=== PATIENT | male | born 1940 | race Caucasian/White ===

== ENCOUNTER 2017-05-29 08:11 | Inpatient (IN) | payer OTHER, MEDICARE ==
[~2017-05-29] VITALS: Ht 172.7 cm; Wt 88.5 kg
[~2017-05-29 08:11] MED LIST: ACTOS15 MG PO; AMARYL2 MG PO; AMLODIPINE BESY10 MG PO; ASPERDRINK81 MG PO; ATENOLOL50 MG PO; BUPROBAN150 MG PO; CALCITRIOL0.5 MCG PO; CARVEDILOL12.5 MG PO; COLACE100 MG PO; CRESTOR10 MG PO; Flomax PO; HYDRALAZINE HCL10 MG PO; Halfprin PO; KEFLEX500 MG PO; LASIX20 MG PO; LISINOPRIL10 MG PO; LOTREL PO; Tenormin PO; Tylenol Regular Stre PO; VITAMIN D31000 UNIT PO; WELLBUTRIN SR150 MG PO; WYGESIC,DARV1 TABLET PO; ZETIA10 MG PO; Zocor PO
[2017-05-29 09:24] LABS: BASOPHIL (%) 0.1 % (0-1); EOSINOPHIL (%) 0.1 % (0-5); HEMATOCRIT 41.5 % (38.0-50.0); HEMOGLOBIN 13.5 G/DL (12.5-16.6); IMMATURE GRANULOCYTE (%) 0.3 % (0.0-0.7); LYMPHOCYTE (%) 12.3 % (15-42); LYMPHOCYTE COUNT 1.2 K/uL (1.0-2.8); MCH 30.5 PG (29.0-34.0); MCHC 32.5 G/DL (30.0-36.0); MCV 93.7 FL (86-99); MONOCYTE (%) 10.6 % (3-12); NEUTROPHIL (%) 76.6 % (45-76); NEUTROPHIL COUNT 7.4 K/uL (1.8-6.4); PLATELET COUNT 281 K/uL (156-360); RBC DIS.WIDTH-CV 12.9 % (11.8-14.6); RBC DIS.WIDTH-SD 44.8 % (39-53); RED BLOOD COUNT 4.43 M/uL (4.00-5.50); WHITE BLOOD COUNT 9.6 K/uL (4.1-10.2)
[2017-05-29 09:32] LABS: ALBUMIN 3.7 g/dL (3.2-4.8); CHLORIDE 100 mEq/L (99-109); POTASSIUM 4.4 mEq/L (3.7-5.4); SODIUM 143 mEq/L (136-147)
[2017-05-29 09:34] LABS: GLUCOSE 127 mg/dL (70-99); TOTAL PROTEIN 7.8 g/dL (6.4-8.3)
[2017-05-29 09:36] LABS: TOTAL BILIRUBIN 0.6 mg/dL (0.0-1.0)
[2017-05-29 09:38] LABS: ALKALINE PHOSPHATASE 110 IU/L (3-129); CREATININE 2.8 mg/dL (0.6-1.3); GFR ESTIMATE (CALCULATED) 23 mL/min/ (58.99-99999)
[2017-05-29 09:39] LABS: UREA NITROGEN (BUN) 51 mg/dL (9-23)
[2017-05-29 09:40] LABS: AST (GOT) 66 IU/L (2-34)
[2017-05-29 09:41] LABS: ALT (GPT) 49 IU/L (3-49)
[2017-05-29 09:49] LABS: TROP-I INTERPRETATION NEGATIVE; TROPONIN-I 0.02 ng/mL (0.0-0.30)
[2017-05-29 10:17] LABS: APPEARANCE CLEAR ((CLEAR)); BILIRUBIN NEGATIVE; BLOOD SMALL; COLOR YELLOW ((YELLOW)); GLUCOSE (STRIP) NEGATIVE; KETONES 5; LEUKOCYTES NEGATIVE; NITRITE NEGATIVE; PROTEIN (STRIP) 100; SPECIFIC GRAVITY 1.017 (1.000-1.030); UROBILINOGEN 0.2 MG/DL (0.2-1.0)
[2017-05-29 10:37] LABS: BACTERIA NONE SEEN /HPF; EPITHELIAL CELLS RARE /HPF; HYALINE CASTS 0-5 /LPF; MUCUS TRACE /LPF; RED BLOOD CELLS 0-5 /HPF (0-5); UCUL ADDED? NO; WHITE BLOOD CELLS 0-5 /HPF (0-5)
[2017-05-29 14:56] VITALS: BP 166/76
[2017-05-29 20:33] VITALS: BP 166/81
[2017-05-29 23:45] VITALS: BP 173/74
[2017-05-30 07:03] LABS: BASOPHIL (%) 0.3 % (0-1); EOSINOPHIL (%) 0.4 % (0-5); HEMATOCRIT 40.9 % (38.0-50.0); IMMATURE GRANULOCYTE (%) 0.3 % (0.0-0.7); LYMPHOCYTE (%) 18.2 % (15-42); LYMPHOCYTE COUNT 1.4 K/uL (1.0-2.8); MCHC 31.8 G/DL (30.0-36.0); MCV 94.2 FL (86-99); MONOCYTE (%) 12.4 % (3-12); NEUTROPHIL (%) 68.4 % (45-76); NEUTROPHIL COUNT 5.4 K/uL (1.8-6.4); PLATELET COUNT 309 K/uL (156-360); RBC DIS.WIDTH-CV 13.1 % (11.8-14.6); RBC DIS.WIDTH-SD 45.1 % (39-53); RED BLOOD COUNT 4.34 M/uL (4.00-5.50); WHITE BLOOD COUNT 7.9 K/uL (4.1-10.2)
[2017-05-30 07:25] LABS: CHLORIDE 100 MEQ/L (99-109); GFR ESTIMATE (CALCULATED) 29 mL/min/ (58.99-99999); GLUCOSE 133 mg/dL (70-99); POTASSIUM 4.1 MEQ/L (3.7-5.4); SODIUM 143 MEQ/L (136-147); UREA NITROGEN (BUN) 41 mg/dL (9-23)
[2017-05-30 07:47] LABS: CREATININE 2.3 MG/DL (0.6-1.3)
[2017-05-30 08:39] VITALS: BP 183/88
[2017-05-30 16:04] VITALS: BP 189/88
[2017-05-30 20:15] VITALS: BP 187/97
[2017-05-31 00:14] VITALS: BP 183/83
[2017-05-31 01:25] VITALS: BP 180/84
[2017-05-31 03:42] VITALS: BP 174/89
[2017-05-31 07:35] LABS: HEMOGLOBIN 12.6 G/DL (12.5-16.6); MCH 29.5 PG (29.0-34.0); MCHC 31.5 G/DL (30.0-36.0); MCV 93.7 FL (86-99); PLATELET COUNT 323 K/uL (156-360); RBC DIS.WIDTH-CV 13.2 % (11.8-14.6); RBC DIS.WIDTH-SD 45.1 % (39-53); RED BLOOD COUNT 4.27 M/uL (4.00-5.50); WHITE BLOOD COUNT 10.6 K/uL (4.1-10.2)
[2017-05-31 08:00] LABS: CHLORIDE 99 MEQ/L (99-109); CREATININE 1.9 MG/DL (0.6-1.3); GFR ESTIMATE (CALCULATED) 37 mL/min/ (58.99-99999); GLUCOSE 121 mg/dL (70-99); MAGNESIUM 1.8 mg/dl (1.3-2.7); SODIUM 140 MEQ/L (136-147); UREA NITROGEN (BUN) 30 mg/dL (9-23)
[2017-05-31 08:36] VITALS: BP 157/94
[2017-05-31 16:08] VITALS: BP 175/82
[2017-06-01 00:15] VITALS: BP 153/71
[2017-06-01 05:48] LABS: HEMATOCRIT 40.7 % (38.0-50.0); MCH 30.6 PG (29.0-34.0); MCHC 31.9 G/DL (30.0-36.0); MCV 95.8 FL (86-99); PLATELET COUNT 330 K/uL (156-360); RBC DIS.WIDTH-CV 13.2 % (11.8-14.6); RBC DIS.WIDTH-SD 45.9 % (39-53); RED BLOOD COUNT 4.25 M/uL (4.00-5.50); WHITE BLOOD COUNT 10.2 K/uL (4.1-10.2)
[2017-06-01 07:33] VITALS: BP 142/75
[2017-06-01] MEDS ORDERED: AUGMENTIN875 MG PO (14:31)
[2017-06-01] MEDS ORDERED: PROBIOTIC1 EAC1 PO (14:32)
[2017-06-01] MEDS ORDERED: APRESOLINE25 MG PO (14:32)
[2017-06-01 16:12] VITALS: BP 190/81
== END 2017-06-01 17:00 | DRG 193 ==
LOC: EME 08:11 → ENRESERV 11:13 → 5SOUTH 11:13 → EDOF 11:13 → ENRESERV 11:24 → 5SOUTH 13:19 → ENPENDDIS 06-01 14:38 → 5SOUTH 06-01 17:00
PROVIDERS: Emergency Medicine; Hospitalist; Internal Medicine
DX: J18.9 Pneumonia, unspecified organism (principal); G93.41 Metabolic encephalopathy; E11.22 Type 2 diabetes mellitus with diabetic chronic kidney disease; N18.9 Chronic kidney disease, unspecified; I25.10 Atherosclerotic heart disease of native coronary artery without angina pectoris; J01.00 Acute maxillary sinusitis, unspecified; E11.9 Type 2 diabetes mellitus without complications; E78.5 Hyperlipidemia, unspecified; I12.9 Hypertensive chronic kidney disease with stage 1 through stage 4 chronic kidney disease, or unspecified chronic kidney disease; F32.9 Major depressive disorder, single episode, unspecified; Z79.82 Long term (current) use of aspirin; Z95.1 Presence of aortocoronary bypass graft; F03.90 Unspecified dementia, unspecified severity, without behavioral disturbance, psychotic disturbance, mood disturbance, and anxiety; Z79.899 Other long term (current) drug therapy
CPT/HCPCS: 70450; 70551; 71045; 71046; 72131; 80048; 80053; 81003; 82948; 83605; 83735; 84484; 85025; 85027; 87040; 87070; 87205; 87449; 93005; 94010; 94667; 94668; 94799; 99202; 99281; 99285; J0295; J0360; J0456; J0696; J1650; J7050

== ENCOUNTER 2017-09-16 21:36 | Inpatient (IN) | payer OTHER, MEDICARE ==
[~2017-09-16] VITALS: Ht 177.8 cm; Wt 81.5 kg
[~2017-09-16 21:36] MED LIST changes: +APRESOLINE25 MG PO; +AUGMENTIN875 MG PO; +PROBIOTIC1 EAC1 PO
[2017-09-16 22:34] LABS: BASOPHIL (%) 0.1 % (0-1); EOSINOPHIL (%) 0.1 % (0-5); HEMATOCRIT 39.5 % (38.0-50.0); IMMATURE GRANULOCYTE (%) 0.5 % (0.0-0.7); LYMPHOCYTE (%) 9.8 % (15-42); LYMPHOCYTE COUNT 1.5 K/uL (1.0-2.8); MCH 30.1 PG (29.0-34.0); MCHC 32.9 G/DL (30.0-36.0); MCV 91.4 FL (86-99); MONOCYTE (%) 10.3 % (3-12); MONOCYTE COUNT 1.5 K/uL (0-0.8); NEUTROPHIL (%) 79.2 % (45-76); NEUTROPHIL COUNT 11.8 K/uL (1.8-6.4); PLATELET COUNT 258 K/uL (156-360); RBC DIS.WIDTH-CV 13.6 % (11.8-14.6); RBC DIS.WIDTH-SD 46.1 % (39-53); RED BLOOD COUNT 4.32 M/uL (4.00-5.50); WHITE BLOOD COUNT 14.8 K/uL (4.1-10.2)
[2017-09-16 22:43] LABS: ALBUMIN 3.6 g/dL (3.2-4.8); CHLORIDE 96 mEq/L (99-109); POTASSIUM 3.9 mEq/L (3.7-5.4); SODIUM 136 mEq/L (136-147)
[2017-09-16 22:44] LABS: INTER. NORMALIZED RATIO 1.1
[2017-09-16 22:45] LABS: GLUCOSE 101 mg/dL (70-99); TOTAL PROTEIN 6.9 g/dL (6.4-8.3)
[2017-09-16 22:47] LABS: PTT 26.6 SEC (25-37); TOTAL BILIRUBIN 0.7 mg/dL (0.0-1.0)
[2017-09-16 22:49] LABS: ALKALINE PHOSPHATASE 115 IU/L (3-129); CREATININE 4.2 mg/dL (0.6-1.3); GFR ESTIMATE (CALCULATED) 15 mL/min/ (58.99-99999)
[2017-09-16 22:50] LABS: UREA NITROGEN (BUN) 67 mg/dL (9-23)
[2017-09-16 22:51] LABS: AST (GOT) 15 IU/L (2-34)
[2017-09-16 22:52] LABS: ALT (GPT) 13 IU/L (3-49)
[2017-09-16 22:55] LABS: TROP-I INTERPRETATION NEGATIVE; TROPONIN-I 0.03 ng/mL (0.0-0.30)
[2017-09-16] MEDS ORDERED: BUPROPION XL300 MG PO (23:24)
[2017-09-16] MEDS ORDERED: LO-DOSE ASPIRIN81 M1 PO (23:25)
[2017-09-16] MEDS ORDERED: ULORIC40 MG PO (23:25)
[2017-09-16] MEDS ORDERED: NITROSTAT0.4 MG SL (23:25)
[2017-09-16] MEDS ORDERED: VITAMIN D-32000 UNI2 PO (23:26)
[2017-09-16] MEDS ORDERED: ARICEPT10 MG PO (23:26)
[2017-09-16] MEDS ORDERED: LASIX40 MG PO (23:26)
[2017-09-16] MEDS ORDERED: TYLENOL EXTRA500 MG PO (23:27)
[2017-09-16] MEDS ORDERED: [UNRECOGNIZED DRUG - OTHER] LEFT EYE (23:30)
[2017-09-17 00:58] LABS: APPEARANCE SL.HAZY ((CLEAR)); BILIRUBIN NEGATIVE; BLOOD NEGATIVE; COLOR YELLOW ((YELLOW)); GLUCOSE (STRIP) NEGATIVE; KETONES NEGATIVE; LEUKOCYTES NEGATIVE; NITRITE NEGATIVE; PROTEIN (STRIP) NEGATIVE; SPECIFIC GRAVITY 1.014 (1.000-1.030); UROBILINOGEN 0.2 MG/DL (0.2-1.0)
[2017-09-17 01:19] LABS: BACTERIA RARE /HPF; EPITHELIAL CELLS RARE /HPF; HYALINE CASTS 0-5 /LPF; MUCUS TRACE /LPF; RED BLOOD CELLS NONE SEEN /HPF (0-5); UCUL ADDED? NO; WHITE BLOOD CELLS 0-5 /HPF (0-5)
[2017-09-17 02:08] LABS: URIC ACID 5.6 mg/dL (3.1-9.2)
[2017-09-17 02:41] VITALS: BP 131/59
[2017-09-17 02:46] LABS: HEMATOCRIT 36.3 % (38.0-50.0); HEMOGLOBIN 12.1 G/DL (12.5-16.6); MCH 30.6 PG (29.0-34.0); MCHC 33.3 G/DL (30.0-36.0); MCV 91.7 FL (86-99); PLATELET COUNT 198 K/uL (156-360); RBC DIS.WIDTH-CV 13.7 % (11.8-14.6); RED BLOOD COUNT 3.96 M/uL (4.00-5.50)
[2017-09-17 03:06] LABS: CHLORIDE 102 mEq/L (99-109); POTASSIUM 3.9 mEq/L (3.7-5.4); SODIUM 140 mEq/L (136-147)
[2017-09-17 03:08] LABS: GLUCOSE 85 mg/dL (70-99)
[2017-09-17 03:10] LABS: TROP-I INTERPRETATION NEGATIVE; TROPONIN-I 0.02 ng/mL (0.0-0.30)
[2017-09-17 03:12] LABS: CREATININE 3.6 mg/dL (0.6-1.3); GFR ESTIMATE (CALCULATED) 18 mL/min/ (58.99-99999)
[2017-09-17 03:13] LABS: UREA NITROGEN (BUN) 60 mg/dL (9-23)
[2017-09-17 08:13] VITALS: BP 134/63
[2017-09-17 10:13] LABS: TROP-I INTERPRETATION NEGATIVE; TROPONIN-I 0.03 ng/mL (0.0-0.30)
[2017-09-17 11:36] VITALS: BP 129/61
[2017-09-17 15:30] VITALS: BP 135/65
[2017-09-17 19:15] VITALS: BP 133/63
[2017-09-17 23:51] VITALS: BP 110/57
[2017-09-18 03:00] VITALS: BP 112/59
[2017-09-18 07:20] VITALS: BP 179/95
[2017-09-18 11:12] LABS: HEMATOCRIT 39.3 % (38.0-50.0); HEMOGLOBIN 12.5 G/DL (12.5-16.6); MCH 29.8 PG (29.0-34.0); MCHC 31.8 G/DL (30.0-36.0); MCV 93.6 FL (86-99); PLATELET COUNT 244 K/uL (156-360); RBC DIS.WIDTH-CV 13.5 % (11.8-14.6); RBC DIS.WIDTH-SD 45.5 % (39-53); WHITE BLOOD COUNT 7.4 K/uL (4.1-10.2)
[2017-09-18 11:34] LABS: CHLORIDE 107 MEQ/L (99-109); GFR ESTIMATE (CALCULATED) 31 mL/min/ (58.99-99999); SODIUM 142 MEQ/L (136-147); UREA NITROGEN (BUN) 34 mg/dL (9-23)
[2017-09-18 11:35] LABS: CREATININE 2.2 MG/DL (0.6-1.3); GLUCOSE 188 mg/dL (70-99)
[2017-09-18 11:51] VITALS: BP 159/72
[2017-09-18 15:18] VITALS: BP 160/60
[2017-09-18 20:26] VITALS: BP 144/70
[2017-09-18 23:50] VITALS: BP 154/70
[2017-09-19 04:36] VITALS: BP 169/84
[2017-09-19 05:36] LABS: BASOPHIL (%) 0.3 % (0-1); EOSINOPHIL (%) 1.8 % (0-5); EOSINOPHIL COUNT 0.1 K/uL (0-0.3); HEMATOCRIT 39.2 % (38.0-50.0); HEMOGLOBIN 12.4 G/DL (12.5-16.6); IMMATURE GRANULOCYTE (%) 0.3 % (0.0-0.7); LYMPHOCYTE (%) 21.3 % (15-42); LYMPHOCYTE COUNT 1.5 K/uL (1.0-2.8); MCH 29.4 PG (29.0-34.0); MCHC 31.6 G/DL (30.0-36.0); MCV 92.9 FL (86-99); MONOCYTE (%) 8.6 % (3-12); MONOCYTE COUNT 0.6 K/uL (0-0.8); NEUTROPHIL (%) 67.7 % (45-76); NEUTROPHIL COUNT 4.9 K/uL (1.8-6.4); PLATELET COUNT 257 K/uL (156-360); RBC DIS.WIDTH-CV 13.4 % (11.8-14.6); RBC DIS.WIDTH-SD 45.2 % (39-53); RED BLOOD COUNT 4.22 M/uL (4.00-5.50); WHITE BLOOD COUNT 7.2 K/uL (4.1-10.2)
[2017-09-19 06:18] LABS: CHLORIDE 107 MEQ/L (99-109); CREATININE 2.2 MG/DL (0.6-1.3); GFR ESTIMATE (CALCULATED) 31 mL/min/ (58.99-99999); POTASSIUM 4.5 MEQ/L (3.7-5.4); SODIUM 144 MEQ/L (136-147); UREA NITROGEN (BUN) 27 mg/dL (9-23)
[2017-09-19 06:24] LABS: GLUCOSE 92 mg/dL (70-99)
[2017-09-19 09:00] VITALS: BP 170/76
[2017-09-19 11:30] VITALS: BP 123/67
[2017-09-19] MEDS ORDERED: AUGMENTIN875 MG PO (12:56)
[2017-09-19] MEDS ORDERED: CARVEDILOL6.25 MG PO (13:10)
[2017-09-19] MEDS ORDERED: APRESOLINE25 MG PO (13:12)
[2017-09-19 17:01] VITALS: BP 132/63
== END 2017-09-19 17:46 | disposition home or self-care (01) | DRG 871 ==
LOC: EME → EDBD 21:36 → 4SOUTH 09-17 00:52 → EDOF 09-17 00:52 → ENRESERV 09-17 00:57 → ENRESERVTM 09-17 01:49 → ENRESERV 09-17 01:49 → ENRESERVDT 09-17 01:49 → 4SOUTH 09-17 02:30
PROVIDERS: Emergency Medicine; Hospitalist; Internal Medicine Nephrology; Nurse Practitioner Adult Health
DX: A41.9 Sepsis, unspecified organism (principal); R65.20 Severe sepsis without septic shock; J15.9 Unspecified bacterial pneumonia; N18.4 Chronic kidney disease, stage 4 (severe); N17.9 Acute kidney failure, unspecified; I48.0 Paroxysmal atrial fibrillation; J44.9 Chronic obstructive pulmonary disease, unspecified; E11.22 Type 2 diabetes mellitus with diabetic chronic kidney disease; I44.7 Left bundle-branch block, unspecified; T50.2X5A Adverse effect of carbonic-anhydrase inhibitors, benzothiadiazides and other diuretics, initial encounter; R32 Unspecified urinary incontinence; E11.9 Type 2 diabetes mellitus without complications; F03.90 Unspecified dementia, unspecified severity, without behavioral disturbance, psychotic disturbance, mood disturbance, and anxiety; F32.9 Major depressive disorder, single episode, unspecified; R07.9 Chest pain, unspecified; I12.9 Hypertensive chronic kidney disease with stage 1 through stage 4 chronic kidney disease, or unspecified chronic kidney disease; E78.5 Hyperlipidemia, unspecified; I25.10 Atherosclerotic heart disease of native coronary artery without angina pectoris; Z87.891 Personal history of nicotine dependence; Z95.5 Presence of coronary angioplasty implant and graft; Z79.82 Long term (current) use of aspirin; Z79.4 Long term (current) use of insulin; Z79.899 Other long term (current) drug therapy; Y92.9 Unspecified place or not applicable; Z86.79 Personal history of other diseases of the circulatory system
CPT/HCPCS: 71045; 71250; 80048; 80053; 81003; 82436; 83605; 83735; 83880; 84133; 84300; 84484; 84550; 85025; 85027; 85610; 85730; 87040; 93005; 93970; 94640; 97530 GP; 99281; 99285; J0295; J0456; J1644; J2543; J3370; J7030; J7040; J7050